=== PATIENT | male | born 2000 | race Caucasian/White ===

== ENCOUNTER 2020-09-16 07:24 | Emergency (ER) | payer BC ==
[~2020-09-16] VITALS: Ht 182.9 cm; Wt 82.0 kg
[~2020-09-16 07:24] MED LIST: NAPR-683 PO; TRAM50TA PO
--- NOTE | 2020-09-16 07:56 | PHYS DOC ---
Past History Past Medical History: No Pertinent History Past Surgical History: No Surgical History Smoking: Non-smoker Alcohol Use: None Drug Use: None Adult General Chief Complaint Chief Complaint: NOSEBLEED [facility] HPI Patient is a 19yo male presenting for nose injury. Onset was 2.5 hours prior to arrival. Has chronic lower back issues, was allegedly performing lower back exercises at home prior to work when he was doing high knees and kneed himself in his nose. Patient reports suffering a small laceration to bridge of nose with immediate onset of nosebleed without loss of consciousness. Did not put pressure on nose, just held dressings to catch the blood. States it was "bleeding pretty good" for approximately 20 minutes and then turned into an ooze with total bleeding time of approximately 45 minutes. Patient finished getting ready for work and went to work when he voiced concerns of being lightheaded and fatigued, he was subsequently sent home. Patient discussed morning events with his mother who is an RN, she advised should he report to the ER for evaluation. On arrival, patient reports being asymptomatic. Reports mild pain to nose, has not taken anything for this. Is otherwise healthy, no medical issues, no blood thinners Review of Systems Review of Systems Fourteen body systems of review of systems have been reviewed. See HPI for pertinent positives and negative responses, other neal all other systems are negative, non-pertinent or non-contributory Allergies Allergies Allergies Coded Allergies Type Severity Reaction Last Updated Verified No Known Drug Allergies 12/15/13 No Physical Exam Physical Exam Constitutional: Well developed, well nourished, no acute distress, non-toxic appearance. HENT: Normocephalic, bilateral external ears normal, no hernandez sign, oropharynx moist, no oral exudates, nose with linear superficial abrasion at midline with mild edema present on bilateral ridges of nasal bridge without palpable crepitus or obvious bony abnormality, internal nose and turbinates unremarkable, no active bleeding Eyes: PERRLA, EOMI, conjunctiva normal, no discharge. Neck: Normal range of motion, no tenderness, supple, no stridor. Cardiovascular: Heart rate regular, sinus rhythm, no murmurs rubs or gallops Lungs & Thorax: Bilateral breath sounds clear to auscultation Abdomen: Bowel sounds normal, soft, no tenderness, no masses, no pulsatile masses. Nonsurgical abdomen, no peritoneal signs Skin: Warm, dry, no erythema, no rash. Back: No tenderness, no CVA tenderness. Extremities: No tenderness, no cyanosis, no clubbing, ROM intact, no edema. Neurologic: Alert and oriented X 3, cranial nerves II through XII intact, normal motor & sensory function, no focal deficits noted. Psychologic: Affect normal, judgement normal, mood normal. Current Patient Data Vital Signs Vital Signs Date Time Temp Pulse Resp B/P (MAP) Pulse Ox O2 Delivery O2 Flow Rate FiO2 09/16/20 07:49 98.0 91 18 Room Air Vital Signs Date Time Temp Pulse Resp B/P (MAP) Pulse Ox O2 Delivery O2 Flow Rate FiO2 09/16/20 07:49 98.0 91 18 Room Air EKG EKG [] Radiology/Procedures Radiology/Procedures [] Heart Score C/O Chest Pain: No HEART Score for Chest Pain: HEART Score for Chest Pain Response (Comments) Value History Slighlty/Non-Suspicious 0 Age < 45 0 Risk Factors No Risk Factors 0 Total 0 Risk Factors: Risk Factors: DM, Current or recent (<one month) smoker, HTN, HLP, family history of CAD, obesity. Risk Scores: Risk Factors: DM, Current or recent (<one month) smoker, HTN, HLP, family history of CAD, obesity. Course & Med Decision Making Course & Med Decision Making Discussed with the patient all findings and diagnostic testing. I discussed most likely diagnosis of nose contusion with subsequent nosebleed, cannot rule out concussion. Nosebleed self resolved. I offered patient radiographs and labs to evaluate hemoglobin status given reported bleeding for "45 minutes "but patient deferred, states only reason he came was because he discussed case with his mother who is an RN and was concerned for his wellbeing. Patient reports he was just freaked out more than anything and wanted to be evaluated by medical professional, states the site of blood scared him more than anything. Reports being asymptomatic at present, is requesting departure home. I discussed that this might be an acute presentation of more concerning pathology and without laboratory and other diagnostic work-up, this might go undetected. I also suspect actual cause/mechanism of injury and so my threshold to proceed further diagnostic work-up was lower. Nonetheless, patient continued to defer ER work- up. As such, I stressed need for close outpatient follow-up to review today's ER visit. Strict return precautions were also discussed at length with good understanding by patient. Patient voiced understanding and agreement with the plan. Patient knows to come back for repeat evaluation if concerning signs or symptoms present prior to outpatient follow-up. Hemodynamically stable, ambulatory and well-appearing at time of disposition. Dragon Disclaimer Dragon Disclaimer This electronic medical record was generated, in whole or in part, using a voice recognition dictation system. Departure Departure: Impression: Primary Impression: Nose injury Disposition: HOME / SELF CARE / HOMELESS Condition: STABLE Patient Instructions: Nosebleed, [id number] Additional Instructions: You were seen for a nose injury and subsequent nosebleed. You should blow your nose and hold pressure on the lower part of your nose if you develop a nose bleed again. Continue this for 20 minutes or until the bleeding stops. Do not remove the pressure to look before this time as your nose will start bleeding again. Your bleeding is most likely due to irritation due to trauma. You need to avoid putting anything in your nose in the future (e.g. fingers, kleenex, qtips, etc). As disclose, it was recommended that we obtain labs and other diagnostic studies given your symptoms but you deferred. As such, close primary care follow-up is advised to ensure continued symptomatic resolution. If any concerning signs or symptoms present prior to outpatient follow-up please do not hesitate to come back for repeat evaluation. It was a pleasure to take care of you and I wish you the best going forward TONA EPSTEIN DO September 16, 2020 07:56
== END 2020-09-16 08:06 | disposition home or self-care (01) ==
LOC: ER 07:24
DX: S00.31XA Abrasion of nose, initial encounter (principal); R04.0 Epistaxis; R42 Dizziness and giddiness; W18.39XA Other fall on same level, initial encounter; Y93.89 Activity, other specified; Y92.89 Other specified places as the place of occurrence of the external cause; Y99.8 Other external cause status
CPT/HCPCS: 99281